=== PATIENT | female | born 1945 | race Caucasian/White ===

== ENCOUNTER → 2017-04-08 | Outpatient (CLI) | payer OTHER ==
[~2017-04-08] MED LIST: ACET-1256 PO
== END | disposition home or self-care (01) ==
LOC: C.LABSPEC 13:25
PROVIDERS: ATTEND Physician Assistant
DX: L29.8 Other pruritus (principal)

== ENCOUNTER 2019-02-06 12:41 | Inpatient (IN) ==
[2019-02-06] MEDS ORDERED: SODIUM CHLORIDE 0.9% 1000ML 500 ML IV ONE ×2 (13:12→15:12)
[2019-02-06 13:26] LABS: Basophils # (auto) 0.01 K/uL (0-0.2); Basophils % (auto) 0.1 %; Eosinophils # (auto) 0.09 K/uL (0-0.5); Eosinophils % (auto) 0.9 %; Hematocrit (blood only) 39.7 % (37-47); Hemoglobin 13.3 g/dL (12.0-16.0); Immature Granulocytes # (auto) 0.03 K/uL (0.00-0.02); Immature Granulocytes % (auto) 0.3 %; Lymphocytes # (auto) 1.44 K/uL (1.2-3.4); Lymphocytes % (auto) 13.9 %; Mean Corpuscular Hgb Conc 33.5 g/dL (32-36); Mean Corpuscular Volume 88.2 fL (80-100); Mean Platelet Volume 9.2 fL (7.4-10.4); Monocytes # (auto) 1.09 K/uL (0.11-0.59); Monocytes % (auto) 10.5 %; Neutrophils # (auto) 7.73 K/uL (1.4-6.5); Neutrophils % (auto) 74.3 %; Platelet Count 237 K/uL (130-400); RDW Coefficient of Variation 14.4 % (11.5-14.5); RDW Standard Deviation 46.7 fL (36.4-46.3); White Blood Count 10.39 K/uL (4.8-10.8)
[2019-02-06 13:45] LABS: Albumin Level 3.7 gm/dl (3.4-5.0); Creatinine Clr Calc Pharmacy 49.7 ml/min; Est GFR (African American) 58.8; Est GFR (Non-African American) 50.7; Potassium 3.8 mmol/L (3.5-5.1)
[2019-02-06 13:47] LABS: Albumin Globulin Ratio 0.9 (0.9-2); Bilirubin,Total 0.8 mg/dl (0.2-1); Globulin 3.9 gm/dl (2.5-4.0); Total Protein 7.6 gm/dl (6.4-8.2)
--- NOTE | 2019-02-06 13:56 | CT Scan Report ---
CT abd pelvis wo con CT DOSE: HISTORY: Pain back pain TECHNIQUE: Multiaxial CT images of the abdomen and pelvis were performed without contrast. A dose lo wering technique was utilized adhering to the principles of ALARA. COMPARISON STUDY: None. FINDINGS: Lung bases are clear. Small pericardial effusion with a maximum thickness of 6 mm. Small hi atal hernia. Liver spleen and pancreas are unremarkable. Kidneys are considered negative for hydronephrosis. Nonob structive bowel pattern. Chronic sigmoid diverticulosis. No evidence for acute diverticulitis. Moderate degenerative change lumbar spine. Moderate degenerative change of the hips bilaterally. No e vidence for compression deformity. IMPRESSION: 1. Small pericardial effusion. 2. Chronic sigmoid diverticulosis. 3. No acute process of the abdomen or pelvis. The above report was generated using voice recognition software. It may contain grammatical, syntax or spelling errors. Electronically signed by: Jorge Luis Robertson M.D. 02/06/2019 1:54 PM
--- NOTE | 2019-02-06 14:04 | CT Scan Report ---
CT lumbar spine wo con CLINICAL HISTORY: 73 years-old Female presenting with back pain. TECHNIQUE: Multidetector CT of the lumbar spine was performed without the use of intravenous contrast . IV contrast: None. One or more dose lowering techniques were used consistent with the principles of ALARA (as low as reasonably achievable), including automatic exposure control, mA or kV adjustment t o individual patient size, and/or use of iterative reconstruction. COMPARISON: None. CT DOSE (mGy.cm): The estimated cumulative dose is 1407.20 mGy.cm. FINDINGS: [facility] topogram: Unremarkable. Normal lumbar lordosis. No significant scoliosis. Vertebral bodies maintain normal height and alignme nt. Mild to moderate intervertebral disc height loss noted at every level of an L1-2. Vacuum disc phe nomenon also noted at several lower lumbar levels. No acute fracture or subluxation. Disc bulges note d from L2-3 through L4-5. The greatest degree of spinal canal effacement is noted at L2-3. Neural for aminal narrowing is noted on the right at L2-3 through L4-5 and on the left at L4-5 and L5-S1. Facet arthropathy noted most significantly in the mid to lower lumbar spine, which significantly contribute s to neural foraminal narrowing. Atherosclerosis. Hiatal hernia. Paraspinal musculature normal. IMPRESSION: 1. Multilevel degenerative changes of the lumbar spine with spinal canal stenosis suspected at L2-3 and multilevel mild neural foraminal narrowing. 2. No acute osseous injury. Electronically signed by: Jovany Woodward M.D. 02/06/2019 2:03 PM
--- NOTE | 2019-02-06 15:29 | XRay Report ---
XR chest 1V portable CLINICAL HISTORY: 73 years-old Female presenting with palpitations. TECHNIQUE: Portable upright AP view of the chest was obtained. COMPARISON: 12/31/2015. FINDINGS: Atherosclerosis of the aortic arch. Cardiac silhouette enlarged. Mild pulmonary vascular prominence. Prominence of lung markings likely vascular in etiology and related to interlobular septal thickening . No focal opacity. No large effusion or pneumothorax. Degenerative changes of the thoracic spine. Up per abdomen normal. IMPRESSION: 1. Cardiomegaly with volume overload and or early congestive change. No shy pulmonary edema at thi s time. Electronically signed by: Jovany Woodward M.D. 02/06/2019 3:28 PM
[2019-02-06 16:03] LABS: Magnesium 1.9 mg/dl (1.8-2.4); Troponin I < 0.015 ng/ml (0-0.045)
--- NOTE | 2019-02-06 16:32 | Emergency Department Note ---
Entered by Claus Erickson acting as a scribe for History of Present Illness General Chief complaint: Urinary Symptoms Stated complaint: UTI - REF BY Time Seen by Provider: 02/06/19 13:02 Source: patient Limitations: no limitations History of Present Illness Provider complaint: Lower abdominal pressure Onset (ago): day(s) Location: abdomen Pain Consistency: + constant Maximum Pain Intensity: 6 Quality: + dull (right lower back) and + other (pressure) Associated symptoms: no chest pain, no fever/chills, no nausea/vomiting, no shortness of breath and no weakness The patient is a 73 year old female who presents to the Emergency Room with complaints of lower abdominal pain and urinary retention. The patient states that she is currently experiencing a "dull" pain in her right lower back, as well as a "pressure" sensation over her lower abdomen. The patient states that the "pressure" in her lower abdomen feels like she "needs to urinate." She attempts to urinate, but is unable to void enough urine to relieve the pressure in the lower abdomen. The patient did urinate a small amount this morning, but the pressure persisted. She denies any pain/burning with urination or noticing blood in the urine. She also denies any numbness/weakness or chest pain, shortness of breath. The patient does have a history of UTIs and admits that she does not consume enough water. The patient saw her primary care office this morning for her symptoms, but was unable to produce enough urine for a urine sample. She was then referred to the ED. Home Medications Home Medications Medication Instructions Recorded Confirmed Type atorvastatin 40 mg PO DAILY 02/06/19 02/06/19 History lisinopril 5 mg PO DAILY 02/06/19 02/06/19 History naproxen 375 mg PO BID PRN 02/06/19 02/06/19 History Allergies Allergy/AdvReac Type Severity Reaction Status Date / Time aspirin Allergy Unknown hives Verified 02/06/19 13:02 acetaminophen [From Vicodin] Allergy Unknown Unverified 02/06/19 13:02 hydrocodone [From Vicodin] Allergy Unknown Unverified 02/06/19 13:02 Past Med/Surg History Medical History HTN (hypertension) Hyperlipidemia Wrist fracture Social History Preferred Language: German Feels Safe at Home: Yes Smoking Status: Former smoker Hx Alcohol Use: No Hx Substance Use: No Review of Systems See HPI for pertinent positives & negatives. and A total of 10 systems reviewed and were otherwise negative Physical Exam Vital Signs Vital Signs - 24 hr 02/06/19 12:43 02/06/19 13:12 02/06/19 13:55 Temperature 36.7 C Temperature Source Oral Sepsis Recent Fever Within 48 Hours No Sepsis New/Unexplained Change in Mental Status No Sepsis Action Taken by Nursing No Action Required Pulse Rate 134 H 117 H 115 H Pulse Rate [Left Finger] Pulse Rate from SpO2 Sensor 121 H Pulse Rhythm Regular Pulse Rhythm [Left Finger] Pulse Strength [Left Finger] Respiratory Rate 18 20 23 Respiratory Effort / Characteristics Non-Labored Spontaneous Respiratory Depth Normal Respiratory Pattern Regular Blood Pressure 152/95 H 134/84 Blood Pressure [Left Arm] Blood Pressure Mean 114 100 Blood Pressure Mean [Left Arm] Blood Pressure Position [Left Arm] Pulse Oximetry 96 95 96 Oxygen Delivery Method Room Air Room Air 02/06/19 13:59 02/06/19 14:00 02/06/19 14:10 Temperature Temperature Source Sepsis Recent Fever Within 48 Hours Sepsis New/Unexplained Change in Mental Status Sepsis Action Taken by Nursing Pulse Rate 119 H 126 H 128 H Pulse Rate [Left Finger] 119 H Pulse Rate from SpO2 Sensor 130 H 123 H 122 H Pulse Rhythm Pulse Rhythm [Left Finger] Regular Pulse Strength [Left Finger] Normal Respiratory Rate 17 24 22 Respiratory Effort / Characteristics Non-Labored Spontaneous Respiratory Depth Normal Respiratory Pattern Regular Blood Pressure Blood Pressure [Left Arm] 134/84 Blood Pressure Mean Blood Pressure Mean [Left Arm] 100 Blood Pressure Position [Left Arm] Sitting Pulse Oximetry 96 96 94 Oxygen Delivery Method Room Air 02/06/19 14:20 02/06/19 14:30 02/06/19 14:40 Temperature Temperature Source Sepsis Recent Fever Within 48 Hours Sepsis New/Unexplained Change in Mental Status Sepsis Action Taken by Nursing Pulse Rate 114 H 111 H 123 H Pulse Rate [Left Finger] Pulse Rate from SpO2 Sensor 124 H 114 H 125 H Pulse Rhythm Pulse Rhythm [Left Finger] Pulse Strength [Left Finger] Respiratory Rate 16 13 17 Respiratory Effort / Characteristics Respiratory Depth Respiratory Pattern Blood Pressure Blood Pressure [Left Arm] Blood Pressure Mean Blood Pressure Mean [Left Arm] Blood Pressure Position [Left Arm] Pulse Oximetry 96 96 95 Oxygen Delivery Method 02/06/19 14:51 02/06/19 15:00 02/06/19 15:10 Temperature Temperature Source Sepsis Recent Fever Within 48 Hours Sepsis New/Unexplained Change in Mental Status Sepsis Action Taken by Nursing Pulse Rate 127 H 116 H 133 H Pulse Rate [Left Finger] Pulse Rate from SpO2 Sensor 119 H 135 H Pulse Rhythm Pulse Rhythm [Left Finger] Pulse Strength [Left Finger] Respiratory Rate 8 L 28 H 21 Respiratory Effort / Characteristics Respiratory Depth Respiratory Pattern Blood Pressure Blood Pressure [Left Arm] Blood Pressure Mean Blood Pressure Mean [Left Arm] Blood Pressure Position [Left Arm] Pulse Oximetry 95 94 Oxygen Delivery Method 02/06/19 15:20 02/06/19 15:25 02/06/19 15:30 Temperature Temperature Source Sepsis Recent Fever Within 48 Hours Sepsis New/Unexplained Change in Mental Status Sepsis Action Taken by Nursing Pulse Rate 136 H 117 H 116 H Pulse Rate [Left Finger] Pulse Rate from SpO2 Sensor 133 H 121 H 124 H Pulse Rhythm Pulse Rhythm [Left Finger] Pulse Strength [Left Finger] Respiratory Rate 17 20 19 Respiratory Effort / Characteristics Respiratory Depth Respiratory Pattern Blood Pressure 147/85 H Blood Pressure [Left Arm] Blood Pressure Mean 105 Blood Pressure Mean [Left Arm] Blood Pressure Position [Left Arm] Pulse Oximetry 96 95 96 Oxygen Delivery Method 02/06/19 15:31 02/06/19 15:40 02/06/19 15:50 Temperature Temperature Source Sepsis Recent Fever Within 48 Hours Sepsis New/Unexplained Change in Mental Status Sepsis Action Taken by Nursing Pulse Rate 118 H 119 H 122 H Pulse Rate [Left Finger] Pulse Rate from SpO2 Sensor 121 H 116 H 126 H Pulse Rhythm Pulse Rhythm [Left Finger] Pulse Strength [Left Finger] Respiratory Rate 23 29 H 25 H Respiratory Effort / Characteristics Respiratory Depth Respiratory Pattern Blood Pressure 124/97 Blood Pressure [Left Arm] Blood Pressure Mean 106 Blood Pressure Mean [Left Arm] Blood Pressure Position [Left Arm] Pulse Oximetry 97 98 98 Oxygen Delivery Method 02/06/19 16:00 02/06/19 16:01 02/06/19 16:10 Temperature Temperature Source Sepsis Recent Fever Within 48 Hours Sepsis New/Unexplained Change in Mental Status Sepsis Action Taken by Nursing Pulse Rate 115 H 135 H 116 H Pulse Rate [Left Finger] Pulse Rate from SpO2 Sensor 121 H 126 H 121 H Pulse Rhythm Pulse Rhythm [Left Finger] Pulse Strength [Left Finger] Respiratory Rate 20 19 29 H Respiratory Effort / Characteristics Respiratory Depth Respiratory Pattern Blood Pressure Blood Pressure [Left Arm] Blood Pressure Mean 136 Blood Pressure Mean [Left Arm] Blood Pressure Position [Left Arm] Pulse Oximetry 96 96 96 Oxygen Delivery Method 02/06/19 16:20 02/06/19 16:30 02/06/19 16:31 Temperature Temperature Source Sepsis Recent Fever Within 48 Hours Sepsis New/Unexplained Change in Mental Status Sepsis Action Taken by Nursing Pulse Rate 119 H 108 H 126 H Pulse Rate [Left Finger] Pulse Rate from SpO2 Sensor 129 H 110 H 120 H Pulse Rhythm Pulse Rhythm [Left Finger] Pulse Strength [Left Finger] Respiratory Rate 18 20 19 Respiratory Effort / Characteristics Respiratory Depth Respiratory Pattern Blood Pressure 131/110 H Blood Pressure [Left Arm] Blood Pressure Mean 117 Blood Pressure Mean [Left Arm] Blood Pressure Position [Left Arm] Pulse Oximetry 97 97 96 Oxygen Delivery Method 02/06/19 16:40 02/06/19 16:51 02/06/19 17:00 Temperature Temperature Source Sepsis Recent Fever Within 48 Hours Sepsis New/Unexplained Change in Mental Status Sepsis Action Taken by Nursing Pulse Rate 124 H 128 H 115 H Pulse Rate [Left Finger] Pulse Rate from SpO2 Sensor 140 H 118 H Pulse Rhythm Pulse Rhythm [Left Finger] Pulse Strength [Left Finger] Respiratory Rate 23 25 H 16 Respiratory Effort / Characteristics Respiratory Depth Respiratory Pattern Blood Pressure 153/103 H 147/105 H Blood Pressure [Left Arm] Blood Pressure Mean 119 119 Blood Pressure Mean [Left Arm] Blood Pressure Position [Left Arm] Pulse Oximetry 98 97 Oxygen Delivery Method 02/06/19 17:10 02/06/19 17:24 02/06/19 17:33 Temperature Temperature Source Sepsis Recent Fever Within 48 Hours Sepsis New/Unexplained Change in Mental Status Sepsis Action Taken by Nursing Pulse Rate 126 H 121 H 125 H Pulse Rate [Left Finger] Pulse Rate from SpO2 Sensor 124 H 128 H 121 H Pulse Rhythm Pulse Rhythm [Left Finger] Pulse Strength [Left Finger] Respiratory Rate 24 25 H 27 H Respiratory Effort / Characteristics Respiratory Depth Respiratory Pattern Blood Pressure Blood Pressure [Left Arm] Blood Pressure Mean Blood Pressure Mean [Left Arm] Blood Pressure Position [Left Arm] Pulse Oximetry 97 98 96 Oxygen Delivery Method 02/06/19 17:40 02/06/19 17:50 02/06/19 18:00 Temperature Temperature Source Sepsis Recent Fever Within 48 Hours Sepsis New/Unexplained Change in Mental Status Sepsis Action Taken by Nursing Pulse Rate 116 H 105 H 104 H Pulse Rate [Left Finger] Pulse Rate from SpO2 Sensor 113 H 105 H 104 H Pulse Rhythm Pulse Rhythm [Left Finger] Pulse Strength [Left Finger] Respiratory Rate 22 22 23 Respiratory Effort / Characteristics Respiratory Depth Respiratory Pattern Blood Pressure 133/88 Blood Pressure [Left Arm] Blood Pressure Mean 103 Blood Pressure Mean [Left Arm] Blood Pressure Position [Left Arm] Pulse Oximetry 97 95 97 Oxygen Delivery Method General: Non-ill appearing older female in no acute distress. HEENT: Normal cephalic atraumatic. Pupils are equal round and reactive to l ight. Extraocular movements are intact. Oropharynx is pink with moist mucous membranes. No swelling of the mouth lips or tongue. Neck: Supple with a midline trachea. No meningeal signs or stiffness, no JVD or bruits. No Stridor. Chest: Clear to auscultation bilaterally. No wheezes or rhonchi. No increased work of breathing. Heart: Mildly tachycardic rate with a regular rhythm. Abdomen: Soft nontender, nondistended without rebound guarding or rigidity. Extremities: No cyanosis clubbing or edema. No calf tenderness or assymetry. Spine/Back. Non tender to palpation. No CVA tenderness Skin: Good turgor without rashes. Neurologic exam: Cranial nerves two through 12 are intact. Motor and sensation are intact and symmetrical. Normal motor sensation in the legs. Intact reflexes throughout. Course 1308: The patient was evaluated in room C1B, and a complete history and physical examination were performed. 1335: I checked on the patient. She is doing well. 1511: I updated the patient. She feels better. 1612: I reviewed the patient's case with Dr. Deal - [facility] [place] [facility]. She will evaluate the patient for further management. Administered Medications Discontinued Medications Sodium Chloride (Nss 1000ml) 500 mls @ 999 mls/hr IV .Q31M ONE Stop: 02/06/19 13:42 Last Infusion: 02/06/19 14:15 Dose: 0 mls/hr Documented by: [id number] Admin: 02/06/19 13:31 Dose: 999 mls/hr Documented by: [id number] Sodium Chloride (Nss 1000ml) 500 mls @ 999 mls/hr IV .Q31M ONE Stop: 02/06/19 15:42 Last Infusion: 02/06/19 16:41 Dose: 0 mls/hr Documented by: [id number] Admin: 02/06/19 15:26 Dose: 999 mls/hr Documented by: [id number] Medical Decision Making Differential Diagnosis Differential Diagnosis includes: UTI, urinary retention, dehydration, kidney stones, arrhythmia, and cardiac disease. Medical Records Attestation: I reviewed the patient's medical records. Home Medications Current Medication List: was personally reviewed by me Laboratory Data Attestation: I reviewed the patient's lab results. Result diagrams: 02/06/19 13:16 02/06/19 13:16 Lab Results 02/06/19 02/06/19 02/06/19 Range/Units 13:16 13:16 13:16 WBC 10.39 (4.8-10.8) K/uL RBC 4.50 (4.2-5.4) M/uL Hgb 13.3 (12.0-16.0) g/dL Hct 39.7 (37-47) % MCV 88.2 (80-100) fL MCH 29.6 (25-34) pg MCHC 33.5 (32-36) g/dL RDW Std Deviation 46.7 H (36.4-46.3) fL RDW Coeff of Manuel 14.4 (11.5-14.5) % Plt Count 237 (130-400) K/uL MPV 9.2 (7.4-10.4) fL Immature Gran % (Auto) 0.3 % Neut % (Auto) 74.3 % Lymph % (Auto) 13.9 % [place] % (Auto) 10.5 % Eos % (Auto) 0.9 % Baso % (Auto) 0.1 % Immature Gran # (Auto) 0.03 H (0.00-0.02) K/uL Neut # (Auto) 7.73 H (1.4-6.5) K/uL Lymph # (Auto) 1.44 (1.2-3.4) K/uL [place] # (Auto) 1.09 H (0.11-0.59) K/uL Eos # (Auto) 0.09 (0-0.5) K/uL Baso # (Auto) 0.01 (0-0.2) K/uL Sodium 139 (136-145) mmol/L Potassium 3.8 (3.5-5.1) mmol/L Chloride 110 H (98-107) mmol/L Carbon Dioxide 22 (21-32) mmol/L Anion Gap 7.0 (3-11) BUN 19 H (7-18) mg/dl Creatinine 1.07 (0.6-1.2) mg/dl Est Cr Clr Drug Dosing 49.7 ml/min Est GFR ( Amer) 58.8 Est GFR (Non-Af Amer) 50.7 BUN/Creatinine Ratio 18.0 (10-20) Glucose 124 H (70-99) mg/dl Calcium 9.0 (8.5-10.1) mg/dl Magnesium 1.9 (1.8-2.4) mg/dl Total Bilirubin 0.8 (0.2-1) mg/dl AST 26 (15-37) U/L ALT 42 (12-78) U/L Alkaline Phosphatase 142 H (45-117) U/L Troponin I < 0.015 (0-0.045) ng/ml Total Protein 7.6 (6.4-8.2) gm/dl Albumin 3.7 (3.4-5.0) gm/dl Globulin 3.9 (2.5-4.0) gm/dl Albumin/Globulin Ratio 0.9 (0.9-2) Lipase 156 (73-393) U/L TSH 3.640 (0.300-4.500) uIu/ml Urine Color Urine Appearance (Clear) Urine pH (4.5-7.5) Ur Specific Grand Chain (1.000-1.030) Urine Protein (Negative) POC Urine Protein (Negative) Urine Glucose (UA) (Negative) POC Ur Glucose (UA) (Normal) Urine Ketones (Negative) POC Urine Ketones (Negative) Urine Blood (Negative) POC Urine Blood (Negative) Urine Nitrite (Negative) POC Urine Nitrite (Negative) Urine Bilirubin (Negative) POC Urine Bilirubin (Negative) Urine Urobilinogen (Negative) POC Urine Urobilinogen (Normal) Ur Leukocyte Esterase (Negative) POC U Leukocyte Esteras (Negative) Urine WBC (Auto) (0-5) /hpf Urine RBC (Auto) (0-4) /hpf U Hyaline Cast (Auto) (0-5) /lpf U Epithel Cells (Auto) (0-5) /lpf Urine Bacteria (Auto) (Negative) 02/06/19 02/06/19 Range/Units 14:51 16:52 WBC (4.8-10.8) K/uL RBC (4.2-5.4) M/uL Hgb (12.0-16.0) g/dL Hct (37-47) % MCV (80-100) fL MCH (25-34) pg MCHC (32-36) g/dL RDW Std Deviation (36.4-46.3) fL RDW Coeff of Manuel (11.5-14.5) % Plt Count (130-400) K/uL MPV (7.4-10.4) fL Immature Gran % (Auto) % Neut % (Auto) % Lymph % (Auto) % [place] % (Auto) % Eos % (Auto) % Baso % (Auto) % Immature Gran # (Auto) (0.00-0.02) K/uL Neut # (Auto) (1.4-6.5) K/uL Lymph # (Auto) (1.2-3.4) K/uL [place] # (Auto) (0.11-0.59) K/uL Eos # (Auto) (0-0.5) K/uL Baso # (Auto) (0-0.2) K/uL Sodium (136-145) mmol/L Potassium (3.5-5.1) mmol/L Chloride (98-107) mmol/L Carbon Dioxide (21-32) mmol/L Anion Gap (3-11) BUN (7-18) mg/dl Creatinine (0.6-1.2) mg/dl Est Cr Clr Drug Dosing ml/min Est GFR ( Amer) Est GFR (Non-Af Amer) BUN/Creatinine Ratio (10-20) Glucose (70-99) mg/dl Calcium (8.5-10.1) mg/dl Magnesium (1.8-2.4) mg/dl Total Bilirubin (0.2-1) mg/dl AST (15-37) U/L ALT (12-78) U/L Alkaline Phosphatase (45-117) U/L Troponin I (0-0.045) ng/ml Total Protein (6.4-8.2) gm/dl Albumin (3.4-5.0) gm/dl Globulin (2.5-4.0) gm/dl Albumin/Globulin Ratio (0.9-2) Lipase (73-393) U/L TSH (0.300-4.500) uIu/ml Urine Color Yellow Urine Appearance Cloudy H (Clear) Urine pH 5.0 (4.5-7.5) Ur Specific [place] 1.022 (1.000-1.030) Urine Protein Negative (Negative) POC Urine Protein Trace H (Negative) Urine Glucose (UA) Negative (Negative) POC Ur Glucose (UA) Normal (Normal) Urine Ketones Negative (Negative) POC Urine Ketones Negative (Negative) Urine Blood 1+ H (Negative) POC Urine Blood Trace H (Negative) Urine Nitrite Negative (Negative) POC Urine Nitrite Negative (Negative) Urine Bilirubin Negative (Negative) POC Urine Bilirubin Negative (Negative) Urine Urobilinogen Negative (Negative) POC Urine Urobilinogen Normal (Normal) Ur Leukocyte Esterase 2+ H (Negative) POC U Leukocyte Esteras 2+ H (Negative) Urine WBC (Auto) >30 H (0-5) /hpf Urine RBC (Auto) 0-4 (0-4) /hpf U Hyaline Cast (Auto) 5-10 H (0-5) /lpf U Epithel Cells (Auto) >30 H (0-5) /lpf Urine Bacteria (Auto) 1+ H (Negative) Imaging Data Attestation: I personally reviewed and interpreted this imaging study as follows: Radiologist's Impression: XR chest 1V portable CLINICAL HISTORY: 73 years-old Female presenting with palpitations. TECHNIQUE: Portable upright AP view of the chest was obtained. COMPARISON: 12/31/2015. FINDINGS: Atherosclerosis of the aortic arch. Cardiac silhouette enlarged. Mild pulmonary vascular prominence. Prominence of lung markings likely vascular in etiology and related to interlobular septal thickening. No focal opacity. No large effusion or pneumothorax. Degenerative changes of the thoracic spine. Upper abdomen normal. IMPRESSION: 1. Cardiomegaly with volume overload and or early congestive change. No shy pulmonary edema at this time. Electronically signed by: Jovany Woodward M.D. 02/06/2019 3:[address] lumbar spine wo con CLINICAL HISTORY: 73 years-old Female presenting with back pain. TECHNIQUE: Multidetector CT of the lumbar spine was performed without the use of intravenous contrast. IV contrast: None. One or more dose lowering techniques were used consistent with the principles of ALARA (as low as reasonably achievable), including automatic exposure control, mA or kV adjustment to individual patient size, and/or use of iterative reconstruction. COMPARISON: None. CT DOSE (mGy.cm): The estimated cumulative dose is 1407.20 mGy.cm. 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 Normal lumbar lordosis. No significant scoliosis. Vertebral bodies maintain n ormal height and alignment. Mild to moderate intervertebral disc height loss noted at every level of an L1-2. Vacuum disc phenomenon also noted at several lower lumbar levels. No acute fracture or subluxation. Disc bulges noted from L2-3 through L4-5. The greatest degree of spinal canal effacement is noted at L2-3. Neural foraminal narrowing is noted on the right at L2-3 through L4-5 and on the left at L4-5 and L5-S1. Facet arthropathy noted most significantly in the mid to lower lumbar spine, which significantly contributes to neural foraminal narrowing. Atherosclerosis. Hiatal hernia. Paraspinal musculature normal. IMPRESSION: 1. Multilevel degenerative changes of the lumbar spine with spinal canal stenosis suspected at L2-3 and multilevel mild neural foraminal narrowing. 2. No acute osseous injury. Electronically signed by: Jovany Woodward M.D. 02/06/2019 2:[address] abd pelvis wo con CT DOSE: HISTORY: Pain back pain TECHNIQUE: Multiaxial CT images of the abdomen and pelvis were performed without contrast. A dose lowering technique was utilized adhering to the principles of ALARA. COMPARISON STUDY: None. FINDINGS: Lung bases are clear. Small pericardial effusion with a maximum thickness of 6 mm. Small hiatal hernia. Liver spleen and pancreas are unremarkable. Kidneys are considered negative for hydronephrosis. Nonobstructive bowel pattern. Chronic sigmoid diverticulosis. No evidence for acute diverticulitis. Moderate degenerative change lumbar spine. Moderate degenerative change of the hips bilaterally. No evidence for compression deformity. IMPRESSION: 1. Small pericardial effusion. 2. Chronic sigmoid diverticulosis. 3. No acute process of the abdomen or pelvis. The above report was generated using voice recognition software. It may contain grammatical, syntax or spelling errors. Electronically signed by: Jorge Luis Robertson M.D. 02/06/2019 1:54 PM ECG Data Attestation: I personally reviewed and interpreted this ECG as follows: Indication: palpitations and tachycardia Rate (beats per minute): 109 Rhythm: atrial fibrillation (RVR) Findings: + other (Low voltage throughout); no acute ischemic change Comparison ECG Date: from (11/22/2013) Blood Pressure Blood Pressure Findings: Elevated blood pressure MDM Narrative This patient comes in as described above. She has some mild low back pain. She saw her doctor today for concern that she was having a hard time urinating so they sent her over here a bladder scan shows minimal urine. She has no neurologic deficits. She has nothing she is to suggest cauda equina syndrome. Her abdomen is benign. It was incidentally noted that her heart was irregular and tachycardic and she was noted to be in new onset rapid A. fib. She had no chest pain or shortness of breath. I did a CAT scan of her abdomen and pelvis there is no obstructive uropathy. She does have degenerative changes in her spine. Her urinalysis on the dip suggest possible UTI however she is been unable to give us a urine sample, she did urinate but missed the cup. She shima ears well however I am concerned that she has new onset A. fib which is slightly rapid. I do think she should be admitted/observe for further treatment evaluation and I did a troponin that was negative TSH was also normal. Chest x- ray did not show any definite acute findings she may have some mild fluid overload. I have consulted Dr. Deal to see her in the ER for these measures. Impression & Plan New onset a-fib, Atrial fibrillation, rapid, Back pain, Dehydration Discharge Plan Visit Data Chief Complaint: Urinary Symptoms Stated Complaint: UTI - REF BY ED Provider: Hal Raphael Discharge Problem: New onset a-fib, Atrial fibrillation, rapid, Back pain, Dehydration Patient Disposition: Being Evaluated by Hospitalist Discharge Instructions Interventions: ED Discharge Assessment Last Done: 02/06/19 18:10 Forms Stand Alone Forms: My [facility] Lifestyle Air Prescriptions Prescriptions: No Action atorvastatin 40 mg tablet 40 mg PO DAILY RF: 0 naproxen 375 mg tablet 375 mg PO BID PRN (Reason: Unknown) RF: 0 lisinopril 5 mg tablet 5 mg PO DAILY RF: 0 Referrals Referrals: Paola Morales MD [Primary Care Provider] - Discharge Problem: Back pain Qualifiers: Back pain location: low back pain Chronicity: acute The scribe's documentation has been prepared under my direction and personally reviewed by me in its entirety. I confirm that the note above accurately reflects all work, treatment, procedures, and medical decision making performed by me.
--- NOTE | 2019-02-06 17:26 | History & Physical Report ---
Date of Service February 06, 2019 Assessment & Plan (1) New onset a-fib: Pt is asx from this, uncertain onset Possibly related to UTI Start heparin drip Start metoprolol 5mg IV PRN ECHO pending Trop neg x1, serials pending Tele monitor Cardiology c/s pending If ECHO suggests nonvalvular etiology, pt likely a good candidate for newer anticoagulation agents (2) UTI (urinary tract infection): Hx of similar sx with UTI Start cipro BID Monitor Cx pending (3) Hyperlipidemia: continue home meds (4) HTN (hypertension): continue home meds (5) DVT prophylaxis: Heparin for DVT proph History of Present Illness Primary Care Provider: Paola Morales MD 73 y/o F c/o inability to urinate. Pt states that this was first noted yesterday. She was able to urinate some, but not enough to feel like she had completely voided. She had pressure to her lower abd but no shy pain. She also noted an ache in her lower back. Pt has had a UTI in the past and had the same sx. No bleeding or burning with urination noted. Pt attempted to be seen by PCP, however she could not provide a urine sample in the office and was referred to the ED. Pt denies fever, SOB, chest pain, abd pain, n/v, LE pain or swelling. She had diarrhea today which she attributes to drinking cranberry juice for what she presumed was a UTI. Denies palpitations. She has felt well otherwise. She did not eat much this AM due to no appetite, but this was new today as well. Pt has had IVF in the ED but no other interventions. She feels no change in her sx. Allergies Allergy/AdvReac Type Severity Reaction Status Date / Time aspirin Allergy Unknown hives Verified 02/06/19 13:02 acetaminophen [From Vicodin] Allergy Unknown Unverified 02/06/19 13:02 hydrocodone [From Vicodin] Allergy Unknown Unverified 02/06/19 13:02 Home Medications Home Medications Medication Instructions Recorded Confirmed Type atorvastatin 40 mg PO DAILY 02/06/19 02/06/19 History lisinopril 5 mg PO DAILY 02/06/19 02/06/19 History naproxen 375 mg PO BID PRN 02/06/19 02/06/19 History Past Med/Surg History Medical History Wrist fracture Family History Father Stroke Social History Preferred Language: Malay Feels Safe at Home: Yes Smoking Status: Former smoker Hx Alcohol Use: No Hx Substance Use: No Review of Systems Pertinent positives and negatives reviewed in HPI--all others negative Physical Exam Vital Signs (Past 24 Hours): Last Vital Signs Temp 36.7 C 02/06/19 12:43 Pulse 124 H 02/06/19 16:40 Resp 23 02/06/19 16:40 BP 131/110 H 02/06/19 16:31 Pulse Ox 96 02/06/19 16:31 Constitutional: WD/WN, vitals as above Eyes: normal visual diego by confrontation and + anicteric sclerae Neck: normal visual inspection and trachea midline Respiratory: normal respiratory effort, lungs clear to auscultation Cardiovascular: Rate/Rhythm: regular rate and regular rhythm Gastrointestinal (Abdomen): Inspection/Auscultation: abdomen not distended Percussion/Palpation: abdomen soft; abdomen nontender Musculoskeletal: Head/Neck/Chest: normocephalic and head atraumatic Trace LE edema, peripheral pulses intact Skin: no rashes, warm and dry Neurologic: awake; not confused Speech / Cognition: normal speech Psychiatric: A+Ox3, euthymic affect Results & Data Diagnostic Findings CT AP: trace pericardial effusions Lspine CT: steonsis with L2-3 narrowing ECG Additional Comments: Afib with RVR Code Status & VTE Plan Code Status Full cardiac code, DNI per pt VTE Prophylaxis Plan VTE Prophylaxis will be ordered: Yes
[2019-02-06 17:50] LABS: Appearance Urine Cloudy (Clear); Bacteria Urine Automated 1+ (Negative); Bilirubin Urine Negative (Negative); Blood Urine 1+ (Negative); Color Urine Yellow; Epithelial Cell Urine Auto >30 /lpf (0-5); Glucose Urine UA Negative (Negative); Ketones Urine Negative (Negative); Leukocyte Esterase Urine 2+ (Negative); Nitrite Urine Negative (Negative); Protein Urine Negative (Negative); RBC Urine Automated 0-4 /hpf (0-4); Specific Gravity Urine 1.022 (1.000-1.030); Urobilinogen Urine Negative (Negative); WBC Urine Automated >30 /hpf (0-5)
[2019-02-06] MEDS ORDERED: ONDANSETRON INJ 2 MG/ML 2 ML VIAL IV PRN (18:46)
[2019-02-06] MEDS ORDERED: ACETAMINOPHEN 325 MG TAB PO PRN (18:46)
[2019-02-06] MEDS ORDERED: NAPROXEN 375 MG TAB PO PRN (18:46)
[2019-02-06] MEDS ORDERED: MAGNESIUM HYDROXIDE SUSP 30 ML UDC PO PRN (18:46)
[2019-02-06] MEDS: METOPROLOL TARTRATE 1 MG/ML VIAL IV PRN (19:36)
[2019-02-06] MEDS ORDERED: HEPARIN IV BOLUS 6,000 UNITS in SYRINGE 0 ML IV ONE (19:40)
[2019-02-06] MEDS ORDERED: Heparin Adult STANDARD Wt-Based Dextrose 5% 25,000 units/500 mL IV SCH (19:45)
[2019-02-06 20:33] LABS: Basophils # (auto) 0.01 K/uL (0-0.2); Basophils % (auto) 0.1 %; Eosinophils # (auto) 0.08 K/uL (0-0.5); Eosinophils % (auto) 0.7 %; Hematocrit (blood only) 38.4 % (37-47); Hemoglobin 12.7 g/dL (12.0-16.0); Immature Granulocytes # (auto) 0.02 K/uL (0.00-0.02); Immature Granulocytes % (auto) 0.2 %; Lymphocytes # (auto) 1.29 K/uL (1.2-3.4); Lymphocytes % (auto) 11.7 %; Mean Corpuscular Volume 89.9 fL (80-100); Mean Platelet Volume 9.4 fL (7.4-10.4); Monocytes # (auto) 1.02 K/uL (0.11-0.59); Monocytes % (auto) 9.3 %; Platelet Count 228 K/uL (130-400); RDW Coefficient of Variation 14.4 % (11.5-14.5); RDW Standard Deviation 47.4 fL (36.4-46.3); Red Blood Count 4.27 M/uL (4.2-5.4); White Blood Count 11.02 K/uL (4.8-10.8)
[2019-02-06 20:37] LABS: Mean Corpuscular Hgb Conc 33.1 g/dL (32-36)
[2019-02-06 20:53] LABS: INR 1.1 (0.9-1.1); Partial Thromboplastin Ratio 1.2; Partial Thromboplastin Time 31.2 Seconds (21.0-31.0)
[2019-02-06] MEDS: CIPROFLOXACIN 400 MG/200 ML BAG IV SCH (21:55)
[2019-02-07] MEDS: METOPROLOL TARTRATE 1 MG/ML VIAL IV PRN (00:01)
[2019-02-07 03:16] LABS: Basophils # (auto) 0.02 K/uL (0-0.2); Basophils % (auto) 0.2 %; Eosinophils # (auto) 0.08 K/uL (0-0.5); Eosinophils % (auto) 0.6 %; Hematocrit (blood only) 37.5 % (37-47); Hemoglobin 12.5 g/dL (12.0-16.0); Immature Granulocytes # (auto) 0.04 K/uL (0.00-0.02); Immature Granulocytes % (auto) 0.3 %; Lymphocytes # (auto) 1.99 K/uL (1.2-3.4); Lymphocytes % (auto) 16.1 %; Mean Corpuscular Hgb Conc 33.3 g/dL (32-36); Mean Corpuscular Volume 88.4 fL (80-100); Mean Platelet Volume 9.9 fL (7.4-10.4); Monocytes # (auto) 1.03 K/uL (0.11-0.59); Monocytes % (auto) 8.3 %; Neutrophils # (auto) 9.18 K/uL (1.4-6.5); Neutrophils % (auto) 74.5 %; Platelet Count 237 K/uL (130-400); RDW Coefficient of Variation 14.5 % (11.5-14.5); Red Blood Count 4.24 M/uL (4.2-5.4); White Blood Count 12.34 K/uL (4.8-10.8)
[2019-02-07 03:39] LABS: Partial Thromboplastin Ratio 3.1
[2019-02-07 03:43] LABS: Partial Thromboplastin Time 83.2 Seconds (21.0-31.0)
[2019-02-07] MEDS ORDERED: PERFLUTREN LIPID MICROSPHERE (DEFINITY) IV ONE (07:55)
[2019-02-07] MEDS: ATORVASTATIN 40 MG TAB PO SCH (08:24)
[2019-02-07] MEDS: LISINOPRIL 5 MG TAB PO SCH (08:24)
[2019-02-07] MEDS: CIPROFLOXACIN 400 MG/200 ML BAG IV SCH ×2 (08:24→21:04)
--- NOTE | 2019-02-07 09:56 | Cardiology Consultation ---
Date of Consultation February 07, 2019 Assessment & Plan (1) New onset a-fib: 1. The patient's [id number] Score was calculated to be 4, which makes her a candidate for oral anticoagulation therapy. The heparin drip she is currently on will be continued for the duration of her hospital stay. Recommend initiating Eliquis 5 mg bid at discharge. The need for anticoagulation to prevent complications from atrial fibrillation was explained in detail to the patient and she expressed her understanding and agreement. 2. For better rate control of her Atrial Fibrillation, we will begin Metoprolol Succinate ER 50 mg PO QD. 3. Serial Troponins were all negative. 4. From a cardiac standpoint, Ms. Rivera is stable from a cardiac standpoint for discharge to home. 5. Follow-up with Hair Vivar PA-C on 03/01/2019 at 2:00 pm. (2) Hyperlipidemia: -- Cholesterol panel from March 2018 shows that numbers are not at goal. -- Recommend repeating FLP, ALT, AST, and CK as outpatient and consider titrating Lipitor. Present on Admission?: Yes (3) HTN (hypertension): -- Continue Lisinopril 5 mg daily. -- Adding Metoprolol Succinate ER 50 mg daily. (4) UTI (urinary tract infection): -- Continue Ciprofloxacin. Supervising Physician Co-Signing Physician Notes Paulino Alvarenga MD History of Present Illness Reason for Consultation: -- Paroxysmal Atrial Fibrillation Requesting Physician: Nick Simms Attending Physician: Paulino Alvarenga MD History of Present Illness Mr. Rivera is a 73 year old female with a past medical history of Hypertension and Hyperlipidemia that was admitted on 02/06/2019 with new onset Atrial fibrillation and a UTI. She states that she presented to the Emergency Department yesterday with complaints of pelvic pressure and the inability to urinate since Wednesday. While in the Emergency Department, her EKG showed that she was currently in an Atrial fibrillation. While in the emergency Department, she stated that she felt like her "heart was going to beat out of her chest." This was the first time she had felt like this. While in the ED, she denied any chest pain, shortness of breath, nausea, vomiting, lightheadedness or dizziness. She is a former smoker, but quit approximately 5-6 years ago. She denies any history of vascular disease, stroke, diabetes, COPD, or asthma. Today, she states she is feeling well and she denies any symptoms of palpitations, chest pain, shortness of breath, orthopnea, PND, lightheadedness or dizziness. She states over night, she felt her heart racing approximately two times. She has not had any signs or symptoms suggestive of stroke or mini-stroke. Allergies Allergy/AdvReac Type Severity Reaction Status Date / Time aspirin Allergy Unknown hives Verified 02/06/19 13:02 hydrocodone [From Vicodin] Allergy Unknown Unverified 02/06/19 13:02 Home Medications Home Medications Medication Instructions Recorded Confirmed Type atorvastatin 40 mg PO DAILY 02/06/19 02/06/19 History lisinopril 5 mg PO DAILY 02/06/19 02/06/19 History apixaban [Eliquis] 5 mg PO BID #60 tab 02/08/19 Rx metoprolol succinate 50 mg PO QAM #30 tab 02/08/19 Rx Patient History Medical History HTN (hypertension) Hyperlipidemia Wrist fracture Social History Preferred Language: Georgian Beliefs That Will Affect Care: None marital status: / Current Living Situation: Alone Other Information That Helps Us Care for You: No Feels Safe at Home: Yes Safety Concerns: Feels Safe At This Time Smoking Status: Former smoker Hx Alcohol Use: No Hx Substance Use: No Physical Exam Vital Signs (Past 24 Hours): Last Vital Signs Temp 36.9 C 02/07/19 07:24 Pulse 109 H 02/07/19 07:24 Resp 20 02/07/19 07:24 BP 126/79 02/07/19 07:24 Pulse Ox 98 02/07/19 07:24 Physical Exam: General: Patient in no acute distress. HEENT: Head is atraumatic, normocephalic. EOMs intact. Sclerae anicteric. Facies symmetric. No perioral cyanosis. Neck: No JVD. Carotid upstrokes +2 bilaterally without bruits. JVP is at the level of the clavicle sitting upright. Chest and Lungs: Breath sounds present in all lung diego with mild wheezing noted at bilateral apices. No rales or rhonci noted. CVS: S1 and S2 are regular with occasional ectopy. No obvious murmurs, gallops, or rubs. PMI is nondisplaced. No lifts, heaves, or thrills. No abdominal aortic or renal bruits. Abdominal Exam: Bowel sounds present. No masses, organomegaly, or tenderness. Extremities: No clubbing, cyanosis, or edema. Intact posterior tibial and radial pulses bilaterally. Neurologic Exam: Patient is awake, alert, and oriented. Pleasant and cooperative. Answers questions appropriately. Speech is clear. Normal movement in all 4 extremities. Telemetry currently shows sinus rhythm with occasional PAC's. Results & Data Laboratory Results Laboratory Results - last 24 hr 02/06/19 02/06/19 02/06/19 13:16 13:16 13:16 WBC 10.39 RBC 4.50 Hgb 13.3 Hct 39.7 MCV 88.2 MCH 29.6 MCHC 33.5 RDW Std Deviation 46.7 H RDW Coeff of Manuel 14.4 Plt Count 237 MPV 9.2 Immature Gran % (Auto) 0.3 Neut % (Auto) 74.3 Lymph % (Auto) 13.9 [place] % (Auto) 10.5 Eos % (Auto) 0.9 Baso % (Auto) 0.1 Immature Gran # (Auto) 0.03 H Neut # (Auto) 7.73 H Lymph # (Auto) 1.44 [place] # (Auto) 1.09 H Eos # (Auto) 0.09 Baso # (Auto) 0.01 PT INR APTT PTT Ratio Sodium 139 Potassium 3.8 Chloride 110 H Carbon Dioxide 22 Anion Gap 7.0 BUN 19 H Creatinine 1.07 Est Cr Clr Drug Dosing 49.7 Est GFR ( Amer) 58.8 Est GFR (Non-Af Amer) 50.7 BUN/Creatinine Ratio 18.0 Glucose 124 H Calcium 9.0 Magnesium 1.9 Total Bilirubin 0.8 AST 26 ALT 42 Alkaline Phosphatase 142 H Troponin I < 0.015 Total Protein 7.6 Albumin 3.7 Globulin 3.9 Albumin/Globulin Ratio 0.9 Lipase 156 TSH 3.640 Urine Color Urine Appearance Urine pH Ur Specific Clio Urine Protein POC Urine Protein Urine Glucose (UA) POC Ur Glucose (UA) Urine Ketones POC Urine Ketones Urine Blood POC Urine Blood Urine Nitrite POC Urine Nitrite Urine Bilirubin POC Urine Bilirubin Urine Urobilinogen POC Urine Urobilinogen Ur Leukocyte Esterase POC U Leukocyte Esteras Urine WBC (Auto) Urine RBC (Auto) U Hyaline Cast (Auto) U Epithel Cells (Auto) Urine Bacteria (Auto) Urine Yeast 02/06/19 02/06/19 02/06/19 14:51 16:52 19:12 WBC RBC Hgb Hct MCV MCH MCHC RDW Std Deviation RDW Coeff of Manuel Plt Count MPV Immature Gran % (Auto) Neut % (Auto) Lymph % (Auto) [place] % (Auto) Eos % (Auto) Baso % (Auto) Immature Gran # (Auto) Neut # (Auto) Lymph # (Auto) [place] # (Auto) Eos # (Auto) Baso # (Auto) PT INR APTT PTT Ratio Sodium Potassium Chloride Carbon Dioxide Anion Gap BUN Creatinine Est Cr Clr Drug Dosing Est GFR ( Amer) Est GFR (Non-Af Amer) BUN/Creatinine Ratio Glucose Calcium Magnesium Total Bilirubin AST ALT Alkaline Phosphatase Troponin I < 0.015 Total Protein Albumin Globulin Albumin/Globulin Ratio Lipase TSH Urine Color Yellow Urine Appearance Cloudy H Urine pH 5.0 Ur Specific [place] 1.022 Urine Protein Negative POC Urine Protein Trace H Urine Glucose (UA) Negative POC Ur Glucose (UA) Normal Urine Ketones Negative POC Urine Ketones Negative Urine Blood 1+ H POC Urine Blood Trace H Urine Nitrite Negative POC Urine Nitrite Negative Urine Bilirubin Negative POC Urine Bilirubin Negative Urine Urobilinogen Negative POC Urine Urobilinogen Normal Ur Leukocyte Esterase 2+ H POC U Leukocyte Esteras 2+ H Urine WBC (Auto) >30 H Urine RBC (Auto) 0-4 U Hyaline Cast (Auto) 5-10 H U Epithel Cells (Auto) >30 H Urine Bacteria (Auto) 1+ H Urine Yeast Not Reportable 02/06/19 02/06/19 02/07/19 20:23 20:23 00:44 WBC 11.02 H RBC 4.27 Hgb 12.7 Hct 38.4 MCV 89.9 MCH 29.7 MCHC 33.1 RDW Std Deviation 47.4 H RDW Coeff of Manuel 14.4 Plt Count 228 MPV 9.4 Immature Gran % (Auto) 0.2 Neut % (Auto) 78.0 Lymph % (Auto) 11.7 [place] % (Auto) 9.3 Eos % (Auto) 0.7 Baso % (Auto) 0.1 Immature Gran # (Auto) 0.02 Neut # (Auto) 8.60 H Lymph # (Auto) 1.29 [place] # (Auto) 1.02 H Eos # (Auto) 0.08 Baso # (Auto) 0.01 PT 11.0 INR 1.1 APTT 31.2 H PTT Ratio 1.2 Sodium Potassium Chloride Carbon Dioxide Anion Gap BUN Creatinine Est Cr Clr Drug Dosing Est GFR ( Amer) Est GFR (Non-Af Amer) BUN/Creatinine Ratio Glucose Calcium Magnesium Total Bilirubin AST ALT Alkaline Phosphatase Troponin I 0.015 Total Protein Albumin Globulin Albumin/Globulin Ratio Lipase TSH Urine Color Urine Appearance Urine pH Ur Specific Clio Urine Protein POC Urine Protein Urine Glucose (UA) POC Ur Glucose (UA) Urine Ketones POC Urine Ketones Urine Blood POC Urine Blood Urine Nitrite POC Urine Nitrite Urine Bilirubin POC Urine Bilirubin Urine Urobilinogen POC Urine Urobilinogen Ur Leukocyte Esterase POC U Leukocyte Esteras Urine WBC (Auto) Urine RBC (Auto) U Hyaline Cast (Auto) U Epithel Cells (Auto) Urine Bacteria (Auto) Urine Yeast 02/07/19 02/07/19 02:56 02:56 WBC 12.34 H RBC 4.24 Hgb 12.5 Hct 37.5 MCV 88.4 MCH 29.5 MCHC 33.3 RDW Std Deviation 47.0 H RDW Coeff of Manuel 14.5 Plt Count 237 MPV 9.9 Immature Gran % (Auto) 0.3 Neut % (Auto) 74.5 Lymph % (Auto) 16.1 [place] % (Auto) 8.3 Eos % (Auto) 0.6 Baso % (Auto) 0.2 Immature Gran # (Auto) 0.04 H Neut # (Auto) 9.18 H Lymph # (Auto) 1.99 [place] # (Auto) 1.03 H Eos # (Auto) 0.08 Baso # (Auto) 0.02 PT INR APTT 83.2 H* PTT Ratio 3.1 Sodium Potassium Chloride Carbon Dioxide Anion Gap BUN Creatinine Est Cr Clr Drug Dosing Est GFR ( Amer) Est GFR (Non-Af Amer) BUN/Creatinine Ratio Glucose Calcium Magnesium Total Bilirubin AST ALT Alkaline Phosphatase Troponin I Total Protein Albumin Globulin Albumin/Globulin Ratio Lipase TSH Urine Color Urine Appearance Urine pH Ur Specific Clio Urine Protein POC Urine Protein Urine Glucose (UA) POC Ur Glucose (UA) Urine Ketones POC Urine Ketones Urine Blood POC Urine Blood Urine Nitrite POC Urine Nitrite Urine Bilirubin POC Urine Bilirubin Urine Urobilinogen POC Urine Urobilinogen Ur Leukocyte Esterase POC U Leukocyte Esteras Urine WBC (Auto) Urine RBC (Auto) U Hyaline Cast (Auto) U Epithel Cells (Auto) Urine Bacteria (Auto) Urine Yeast Medications Administered Active Medications Generic Name Dose Route Start Last Admin Trade Name Freq PRN Reason Stop Dose Admin Acetaminophen 650 mg 02/06/19 18:46 Tylenol PO 03/08/19 18:45 Q4H PRN Pain or Fever Atorvastatin Calcium 40 mg 02/07/19 09:00 02/07/19 08:24 Lipitor PO 03/09/19 08:59 40 mg DAILY FILI Administration Ciprofloxacin 400 mg in 200 mls @ 100 mls/hr 02/06/19 20:00 02/07/19 08:24 Cipro IV 02/16/19 19:59 100 mls/hr Q12H FILI Administration Heparin Sodium/Dextrose 25,000 units in 500 mls @ 22 mls/hr 02/06/19 19:45 02/07/19 07:12 Heparin Sodium/Dextrose IV 03/08/19 19:44 1,100 units/hr .[id number] FILI 22 mls/hr Titration Protocol 1,100 UNITS/HR Lisinopril 5 mg 02/07/19 09:00 02/07/19 08:24 Zestril PO 03/09/19 08:59 5 mg DAILY FILI Administration Magnesium Hydroxide 30 ml 02/06/19 18:46 Milk Of Magnesia PO 03/08/19 18:45 Q12H PRN Constipation Metoprolol Succinate 50 mg 02/07/19 09:45 Toprol Xl PO 03/09/19 09:44 QAM FILI Metoprolol Tartrate 5 mg 02/06/19 18:46 02/07/19 00:01 Lopressor IV 03/08/19 18:45 5 mg Q5M PRN Administration Tachycardia Naproxen 375 mg 02/06/19 18:46 Naprosyn PO 03/08/19 18:45 BID PRN Unknown Ondansetron HCl 4 mg 02/06/19 18:46 Zofran IV 03/08/19 18:45 Q6H PRN Nausea ECG Additional Comments: Initial EKG on 02/06/2019 at 15:43 showed atrial fibrillation with rapid ventricular response at a rate of 109 bpm. Subsequent EKG on 02/06/2019 at 19:54 showed sinus rhythm at 91 bpm with a RBBB. Subsequent EKG on 02/07/2019 at 07:00 showed atrial fibrillation at a rate of 100 bpm.
[2019-02-07 11:19] LABS: Partial Thromboplastin Time 54.2 Seconds (21.0-31.0)
[2019-02-07] MEDS: METOPROLOL SUCC 50MG EXT REL TAB PO SCH (11:44)
[2019-02-07] MEDS ORDERED: FUROSEMIDE 20 MG TAB PO ONE (14:45)
[2019-02-07] MEDS ORDERED: POTASSIUM CHLORIDE 10 MEQ TABCR PO STA (14:46)
[2019-02-07] MEDS: MAGNESIUM OXIDE 400 MG TAB PO SCH ×2 (15:23→21:04)
[2019-02-07] MEDS: APIXABAN 5 MG TABLET PO SCH ×2 (15:24→21:04)
--- NOTE | 2019-02-07 21:30 | Hospitalist Progress Note ---
Date of Service February 07, 2019 Assessment & Plan (1) New onset a-fib: Largely asymptomatic from such. Seen incidentally at time of admission when she presented with UTI. On tele has been going back/forth from NSR to a.fib. Thus, chronicity difficult to know. CHADS score is high - anticoagulation recommended. Eliquis BID $9/month. Will use eliquis; stop heparin drip. Agree with toprol xl for rate control. TSH wnl. ?pulmonary edema on x-ray and exam? lasix 20mg po x 1 reassess in am Present on Admission?: Yes (2) UTI (urinary tract infection): Cont cipro BID Follow culture uncomplicated Present on Admission?: Yes (3) Hyperlipidemia: continue statin (4) HTN (hypertension): continue home meds; may need to adjust DARREN since betablocker is being started for a.fib. (5) Morbid obesity: BMI just shy of 40 (6) Pericardial effusion: uncertain etiology at minimum will need outpatient follow-up/repeat echo in future no symptoms/signs of tamponade (7) DVT prophylaxis: juan ramonquis ambulate today to see what HRs are w/ activity follow culture hopefully home tomorrow Subjective tele with NSR or a.fib -- going back/forth between them. patient feels "better today" - bladder pressure resolved. no dysuria. appetite fair. Constitutional: no fever and no chills Respiratory: no cough and no dyspnea Cardiovascular: no chest pain Gastrointestinal: no abdominal pain Physical Exam Vital Signs (Past 24 Hours): Last Vital Signs Temp 37.0 C 02/07/19 19:26 Pulse 87 02/07/19 19:26 Resp 18 02/07/19 19:26 BP 149/89 H 02/07/19 19:26 Pulse Ox 94 02/07/19 19:26 Constitutional: + morbidly obese; no acute distress and not ill appearing ENMT: external ear and nose normal, oropharynx normal Respiratory: Auscultation: + rales (occasional) course BS b/l Cardiovascular: Rate/Rhythm: regular rate; + abnormal rhythm (irregular) Heart Sounds: normal S1 and normal S2; no murmur Vessels: posterior tibial pulses present and dorsalis pedis pulses present; no JVD Extremities: no edema Gastrointestinal (Abdomen): normal bowel sounds, soft, nontender, no hepatosplenomegaly Psychiatric: A+Ox3, euthymic affect Results & Data Laboratory Results Laboratory Results - last 24 hr 02/06/19 02/07/19 02/07/19 14:51 00:44 02:56 WBC RBC Hgb Hct MCV MCH MCHC RDW Std Deviation RDW Coeff of Manuel Plt Count MPV Immature Gran % (Auto) Neut % (Auto) Lymph % (Auto) Kay % (Auto) Eos % (Auto) Baso % (Auto) Immature Gran # (Auto) Neut # (Auto) Lymph # (Auto) Kay # (Auto) Eos # (Auto) Baso # (Auto) APTT 83.2 H* PTT Ratio 3.1 Troponin I 0.015 POC Urine pH Not Reportable 02/07/19 02/07/19 02:56 10:46 WBC 12.34 H RBC 4.24 Hgb 12.5 Hct 37.5 MCV 88.4 MCH 29.5 MCHC 33.3 RDW Std Deviation 47.0 H RDW Coeff of Manuel 14.5 Plt Count 237 MPV 9.9 Immature Gran % (Auto) 0.3 Neut % (Auto) 74.5 Lymph % (Auto) 16.1 Kay % (Auto) 8.3 Eos % (Auto) 0.6 Baso % (Auto) 0.2 Immature Gran # (Auto) 0.04 H Neut # (Auto) 9.18 H Lymph # (Auto) 1.99 Kay # (Auto) 1.03 H Eos # (Auto) 0.08 Baso # (Auto) 0.02 APTT 54.2 H* PTT Ratio 2.0 Troponin I POC Urine pH Diagnostic Findings echo - EF >70%, normal valve function urine cx pending TSH wnl (1) UTI (urinary tract infection) Urinary tract infection type: acute cystitis Hematuria presence: without hematuria Qualified Code(s): N30.00 - Acute cystitis without hematuria (2) Hyperlipidemia Hyperlipidemia type: mixed hyperlipidemia Qualified Code(s): E78.2 - Mixed hyperlipidemia (3) HTN (hypertension) Hypertension type: essential hypertension Qualified Code(s): I10 - Essential (primary) hypertension
[2019-02-08 07:26] LABS: Basophils # (auto) 0.01 K/uL (0-0.2); Basophils % (auto) 0.1 %; Eosinophils # (auto) 0.18 K/uL (0-0.5); Eosinophils % (auto) 2.3 %; Hematocrit (blood only) 36.7 % (37-47); Immature Granulocytes # (auto) 0.02 K/uL (0.00-0.02); Immature Granulocytes % (auto) 0.3 %; Lymphocytes # (auto) 1.41 K/uL (1.2-3.4); Lymphocytes % (auto) 17.6 %; Mean Corpuscular Hgb Conc 32.7 g/dL (32-36); Mean Corpuscular Volume 90.2 fL (80-100); Mean Platelet Volume 9.1 fL (7.4-10.4); Monocytes # (auto) 0.78 K/uL (0.11-0.59); Monocytes % (auto) 9.8 %; Neutrophils # (auto) 5.59 K/uL (1.4-6.5); Neutrophils % (auto) 69.9 %; Platelet Count 228 K/uL (130-400); RDW Coefficient of Variation 14.2 % (11.5-14.5); RDW Standard Deviation 47.2 fL (36.4-46.3); Red Blood Count 4.07 M/uL (4.2-5.4); White Blood Count 7.99 K/uL (4.8-10.8)
[2019-02-08 07:46] LABS: BUN Creatinine Ratio 13.5 (10-20); Calcium 8.5 mg/dl (8.5-10.1); Creatinine Clr Calc Pharmacy 51.6 ml/min; Est GFR (African American) 61.6; Est GFR (Non-African American) 53.1; Magnesium 2.1 mg/dl (1.8-2.4); Potassium 4.1 mmol/L (3.5-5.1)
[2019-02-08] MEDS: APIXABAN 5 MG TABLET PO SCH (08:27)
[2019-02-08] MEDS: ATORVASTATIN 40 MG TAB PO SCH (08:27)
[2019-02-08] MEDS: CIPROFLOXACIN 400 MG/200 ML BAG IV SCH (08:27)
[2019-02-08] MEDS: MAGNESIUM OXIDE 400 MG TAB PO SCH (08:28)
[2019-02-08] MEDS: METOPROLOL SUCC 50MG EXT REL TAB PO SCH (08:28)
[2019-02-08] MEDS: LISINOPRIL 5 MG TAB PO SCH (08:29)
--- NOTE | 2019-02-08 12:23 | Cardiology Progress Note ---
Date of Service February 08, 2019 Assessment & Plan (1) Paroxysmal atrial fibrillation: She is asymptomatic with her atrial fibrillation. She is currently in sinus rhythm. She spontaneously converted to sinus rhythm. Atrial fibrillation was incidentally noted when she presented with urinary symptoms. Agree with beta-sola therapy for rate control strategy. Treatment strategies were discussed with her. Agree with anticoagulation for stroke risk reduction. Given the fact that she had a pericardial effusion prior to anticoagulation, would recommend close follow-up to ensure no change in size of her pericardial effusion. (2) Pericardial effusion: Small pericardial effusion without clinical tamponade. Recommend limited echo when following up in the next 1-2 weeks in the outpatient setting. No invasive measures recommended at this time. (3) HTN (hypertension): Blood pressure reasonably controlled. Beta-sola has been added to her DARREN-inhibitor which she takes an outpatient. (4) Disposition: From a cardiac standpoint she can be discharged. Cardiology will sign off at this time. Patient care communicated with Dr. Ro of the primary hospitalist service. She is now requesting that her outpatient appointment be changed to next Wednesday due to ride availability. Cardiology office contacted to arrange the appointment to meet her schedule. Follow-up limited echo at that time as well. Subjective She denies chest pain, shortness of breath, syncope, near-syncope, or edema. She did have an episode of palpitations last night. Nursing staff went and reviewed the telemetry at that time and reportedly demonstrated sinus rhythm. She stated that she woke up from a dream and felt her heart racing. She denies bleeding such as melena, hematochezia, or hematuria. Review of systems: As above. Physical Exam Vital Signs (Past 24 Hours): Last Vital Signs Temp 37.0 C 02/08/19 06:55 Pulse 85 02/08/19 06:55 Resp 19 02/08/19 06:55 BP 135/67 02/08/19 06:55 Pulse Ox 97 02/08/19 06:55 Intake & Output 02/06/19 02/07/19 02/08/19 02/09/19 06:59 06:59 06:59 06:59 Intake Total 1957.083 / 1957.08 3 2472.917 / 2472.91 7 Output Total 900 / 900 2350 / 2350 Balance 1057.083 / 1057.08 3 122.917 / 122.917 Weight 98 kg 97.9 kg Physical Exam: Gen.: No acute distress. Alert and oriented. HEENT: Anicteric sclera. Neck: No JVD. Cardiac: Regular. Rare ectopy. Normal S1-S2. No murmurs, rubs, or gallops. Pulmonary: Clear to auscultation bilaterally without wheezes, rales, or rhonchi. Abdomen: Soft, nontender, nondistended, with normoactive bowel sounds. No bruits noted. Extremities: Trace right lower extremity edema. No cyanosis. Psychiatric: Affect appears appropriate. Results & Data Laboratory Results Laboratory Results - last 24 hr 02/06/19 02/08/19 02/08/19 14:51 07:03 07:03 WBC 7.99 RBC 4.07 L Hgb 12.0 Hct 36.7 L MCV 90.2 MCH 29.5 MCHC 32.7 RDW Std Deviation 47.2 H RDW Coeff of Manuel 14.2 Plt Count 228 MPV 9.1 Immature Gran % (Auto) 0.3 Neut % (Auto) 69.9 Lymph % (Auto) 17.6 [place] % (Auto) 9.8 Eos % (Auto) 2.3 Baso % (Auto) 0.1 Immature Gran # (Auto) 0.02 Neut # (Auto) 5.59 Lymph # (Auto) 1.41 [place] # (Auto) 0.78 H Eos # (Auto) 0.18 Baso # (Auto) 0.01 Sodium 143 Potassium 4.1 Chloride 111 H Carbon Dioxide 26 Anion Gap 6.0 BUN 14 Creatinine 1.03 Est Cr Clr Drug Dosing 51.6 Est GFR ( Amer) 61.6 Est GFR (Non-Af Amer) 53.1 BUN/Creatinine Ratio 13.5 Glucose 130 H Calcium 8.5 Magnesium 2.1 POC Urine pH Not Reportable Diagnostic Findings Telemetry personally reviewed: Sinus rhythm. She had been in atrial fibrillation previously this hospitalization. ECG personally reviewed: ECG 02/08/2019: Sinus rhythm at 78 bpm. Incomplete RBBB. Echo 02/07/2019: Hyperdynamic LV. EF > 70%. Normal wall motion. No LVH. Mild left atrial dilation. Small pericardial effusion without echocardiographic evidence of tamponade physiology. RVSP 27. No significant valvular abnormalities. Medications Administered Current Inpatient Medications Acetaminophen (Tylenol) 650 mg PO Q4H PRN PRN Reason: Pain or Fever Stop: 03/08/19 18:45 Apixaban (Eliquis) 5 mg PO BID [facility] Stop: 03/09/19 14:14 Last Admin: 02/08/19 08:27 Dose: 5 mg Documented by: Atorvastatin Calcium (Lipitor) 40 mg PO DAILY [facility] Stop: 03/09/19 08:59 Last Admin: 02/08/19 08:27 Dose: 40 mg Documented by: Lisinopril (Zestril) 5 mg PO DAILY [facility] Stop: 03/09/19 08:59 Last Admin: 02/08/19 08:29 Dose: 5 mg Documented by: Magnesium Hydroxide (Milk Of Magnesia) 30 ml PO Q12H PRN PRN Reason: Constipation Stop: 03/08/19 18:45 Magnesium Oxide (Mag-Ox) 400 mg PO BID [facility] Stop: 03/09/19 14:59 Last Admin: 02/08/19 08:28 Dose: 400 mg Documented by: Metoprolol Succinate (Toprol Xl) 50 mg PO QAM [facility] Stop: 03/09/19 09:44 Last Admin: 02/08/19 08:28 Dose: 50 mg Documented by: Metoprolol Tartrate (Lopressor) 5 mg IV Q5M PRN PRN Reason: Tachycardia Stop: 03/08/19 18:45 Last Admin: 02/07/19 00:01 Dose: 5 mg Documented by: Naproxen (Naprosyn) 375 mg PO BID PRN PRN Reason: Unknown Stop: 03/08/19 18:45 Ondansetron HCl (Zofran) 4 mg IV Q6H PRN PRN Reason: Nausea Stop: 03/08/19 18:45 (1) HTN (hypertension) Hypertension type: essential hypertension Qualified Code(s): I10 - Essential (primary) hypertension
--- NOTE | 2019-02-17 21:06 | Discharge Summary ---
Date of Service date of admission - February 06, 2019 date of discharge - February 08, 2019 Admission HPI Per Admitting Provider 73yo female presented as a referral from her PCP's office with new-onset a.fib and inability to urinate. Patient stated her symptoms began 24 hours ago. She reported incomplete bladder emptying and lower abdominal pressure. She also noted an ache in her lower back. Patient had had a UTI in the past and had the same symptoms. Denied hematuria or dysuria. Denied fever, SOB, chest pain, abd pain, n/v, LE pain or swelling. She had diarrhea today which she attributes to drinking cranberry juice for what she presumed was a UTI. Principal Diagnosis new-onset a.fib and UTI Discharge Exam Constitutional + morbidly obese; no acute distress and not ill appearing ENMT external ear and nose normal, oropharynx normal Cardiovascular Rate/Rhythm: regular rate and regular rhythm Heart Sounds: normal S1 and normal S2; no murmur Vessels: posterior tibial pulses present and dorsalis pedis pulses present; no JVD Extremities: no edema Gastrointestinal (Abdomen) normal bowel sounds, soft, nontender, no hepatosplenomegaly Psychiatric A+Ox3, euthymic affect Discharge Data Allergies Allergy/AdvReac Type Severity Reaction Status Date / Time aspirin Allergy Unknown hives Verified 02/06/19 13:02 hydrocodone [From Vicodin] Allergy Unknown Unverified 02/06/19 13:02 Consultations [facility] - Devante Alvarenga MD Ordered Studies 1. CT abd pelvis - IMPRESSION: 1. Small pericardial effusion. 2. Chronic sigmoid diverticulosis. 3. No acute process of the abdomen or pelvis. 2. CT lumbar spine - IMPRESSION: 1. Multilevel degenerative changes of the lumbar spine with spinal canal stenosis suspected at L2-3 and multilevel mild neural foraminal narrowing. 2. No acute osseous injury. 3. echocardiogram - * EF > 70% * mild left atrial enlargement * small pericardial effusion w/o evidence of tamponade physiology * normal pulmonary pressures Hospital Course (1) New onset a-fib: Asymptomatic from such. Seen incidentally at time of admission when she presented with UTI. On telemetry she initially was going back/forth from NSR to a.fib but then spontaneously converted back to NSR and remained in NSR until discharge. CHADS score was high - anticoagulation recommended. Seen by [facility]. They, too, advised beta sola for rate control & anticoagulation. She will d/c home on toprol xl and eliquis twice daily. Of note - TSH was normal. She will follow-up with [facility] within 2 weeks of discharge for the a.fib as well as the pericardial effusion. (2) UTI (urinary tract infection): Final urine culture showed contamination. HOWEVER, she was symptomatic for UTI and her u/a was strongly suggestive of UTI. Thus, I elected to continue treatment after discharge with a course of keflex. (3) Hyperlipidemia: continue statin therapy. (4) HTN (hypertension): She will remain on DARREN inhibitor. Beta sola (toprol xl) was added for a.fib rate control as well. (5) Morbid obesity: BMI 39.5 (6) Pericardial effusion: Small on echo. Uncertain etiology. At minimum will need outpatient follow-up/repeat echo in future (within 2 weeks). No symptoms/signs of tamponade. Total Time Total Time Spent Total Time Spent (In Minutes): 35 Total Time Includes: Examination of the Patient, Discharge Planning, Medication Reconciliation and Communication With Other Providers Discharge Plan Discharge Items Patient Disposition: Home - Self-Care Reason For Visit: Atrial fibrillation Discharge Diagnosis: 1. suspected urinary tract infection 2. atrial fibrillation - new onset Discharge Goals: Diagnostic testing and Therapeutic intervention Activity: Resume your previous activity Activity Comment: as tolerated Non-emergency contact: Primary Care Provider and Machine Compositor Call non-emergency contact if: you have any medication questions, your symptoms worsen and your temperature is above 100.5 Follow-up/Referrals: Devante Alvarenga MD [Physician] - (see Dr. Alvarenga - cardiology - in 1-2 weeks for a.fib) Paola Morales MD [Primary Care Provider] - 02/10/19 4:10 pm (Please, follow up at Dr. Paola Morales' office on WednesdayFebruary 10 at 4:10 pm. *If you need to change this appointment, call the office at [phone].) Diet: Heart Healthy Add Provider Instructions: From Nick Simms - hospitalist - You were treated for UTI (urinary tract infection) and new-onset a.fib. A.fib is an irregular heart rhythm. It did not appear you had symptoms from it. By the morning of 02/07/19 you had converted back to a normal heart rhythm. It is possible you can go back into a.fib in the future. Your echo (heart ultrasound) showed good heart function. You do have a thin rim of fluid in the sac of the heart which the junior buyer will follow over time. Right now the fluid is not causing problems or causing harm to the heart. You were seen by cardiology and the following were recommended- 1. blood thinner to prevent stroke from the a.fib. Please take eliquis 5mg twice daily every day. 2. metoprolol xl 50mg once daily for your heart. For your suspected urinary infection take -- cephalexin 500mg twice a day for 5 days. Start this TONIGHT. Blood thinners increase the risk of bleeding. Thus, if you have blood in your stool, blood in your urine, severe nosebleed, etc - please let your doctors know right away. Follow-up -- see separate section. Return to [facility] if -- * you have fevers over 100.5 degrees * you have worsening shortness of breath or chest pain * you have tachycardia (rapid heart beat) or palpitations * you have severe dizziness or lightheadedness * any other concerns Prescriptions: New metoprolol succinate 50 mg Tablet Extended Release 24 Hr 50 mg PO QAM Qty: 30 RF: 5 Eliquis 5 mg Tablet 5 mg PO BID Qty: 60 RF: 5 Continued atorvastatin 40 mg tablet 40 mg PO DAILY RF: 0 lisinopril 5 mg tablet 5 mg PO DAILY RF: 0 Discontinued naproxen 375 mg tablet 375 mg PO BID PRN (Reason: Unknown) RF: 0 Stand-Alone Forms: [facility]/Other Patient Handouts: ED Afib Discharge Orders: Discharge Order (Routine); Ordered 02/08/19 Ordered By: Nick Simms Admission Data Admit Date/Time: 02/06/19 17:17 Attending Provider: Nick Simms Admit Provider: Marylin Deal Primary Care Provider: Paola Morales Other Providers: Marylin Deal ; Devante Alvarenga Service: Telemetry Other Interventions: Discharge Summary Assessment (RN) Last Done: 02/08/19 16:20 Pending Studies at Discharge: No DC Date/Time DO NOT enter until pt leaves facility: 02/08/19 17:25
== END 2019-02-08 17:25 | disposition home or self-care (01) | DRG 309 ==
LOC: ED 12:41 → SUATTDRO 17:17 → 2S 17:17
DX: Z68.39 Body mass index [BMI] 39.0-39.9, adult; Z66 Do not resuscitate; Z88.5 Allergy status to narcotic agent; I48.0 Paroxysmal atrial fibrillation; I10 Essential (primary) hypertension; Z87.891 Personal history of nicotine dependence; E86.0 Dehydration; I31.3 Pericardial effusion (noninflammatory); E78.5 Hyperlipidemia, unspecified; M54.9 Dorsalgia, unspecified; Z82.3 Family history of stroke; Z88.6 Allergy status to analgesic agent; N39.0 Urinary tract infection, site not specified; E66.01 Morbid (severe) obesity due to excess calories